=== PATIENT | male | born 1975 | race African-American/Black ===

== ENCOUNTER 2019-01-14 13:45 | Emergency (ER) | payer OTHER ==
[~2019-01-14] VITALS: Ht 167.6 cm; Wt 84.1 kg
[2019-01-14] MEDS ORDERED: LIDOCAINE 5% TRANSDERMAL PATCH TD ONE (15:30)
[2019-01-14] MEDS ORDERED: METHOCARBAMOL 500 MG TABLET PO ONE (15:30)
[2019-01-14] MEDS ORDERED: ACETAMINOPHEN 500 MG TABLET PO ONE (15:30)
[2019-01-14] MEDS ORDERED: IBUPROFEN 600 MG TABLET PO ONE (15:30)
[2019-01-14 16:03] VITALS: BP 149/114
== END 2019-01-14 16:35 | disposition home or self-care (01) ==
LOC: EMS 13:47
DX: S39.012A Strain of muscle, fascia and tendon of lower back, initial encounter (principal); S83.91XA Sprain of unspecified site of right knee, initial encounter; S83.92XA Sprain of unspecified site of left knee, initial encounter; I10 Essential (primary) hypertension; V43.52XA Car driver injured in collision with other type car in traffic accident, initial encounter; Y93.89 Activity, other specified; Y92.488 Other paved roadways as the place of occurrence of the external cause; Y99.8 Other external cause status